=== PATIENT | female | born 1990 | race Caucasian/White ===

== ENCOUNTER 2022-05-08 16:14 | Outpatient (CLI) | payer OTHER, SELFPAY ==
[2022-05-08 21:52] LABS: Chlamydia DNA Amplified* NOT DETECTED (No Detected); GC DNA Amplified* NOT DETECTED (No Detected)
== END 2022-05-08 16:15 | disposition home or self-care (01) ==
PROVIDERS: PCP Family Medicine; Visit Provider Registered Nurse
DX: Z11.3 Encounter for screening for infections with a predominantly sexual mode of transmission (principal)
CPT/HCPCS: 87491; 87591

== ENCOUNTER 2023-01-16 10:08 | Outpatient (CLI) | payer OTHER, SELFPAY | END 2023-01-16 10:09 | disposition home or self-care (01) | LOC: NFLDREF 14:20 | PROVIDERS: PCP Family Medicine; Referring Provider Family Medicine; Visit Provider Family Medicine | DX: Z13.1 Encounter for screening for diabetes mellitus (principal); Z13.6 Encounter for screening for cardiovascular disorders | CPT/HCPCS: 80061; 82947 ==

== ENCOUNTER 2023-07-17 09:46 | Outpatient (CLI) | payer OTHER, SELFPAY | END 2023-07-17 09:47 | disposition home or self-care (01) | LOC: NFLDREF 09:47 | PROVIDERS: PCP Family Medicine; Visit Provider Family Medicine | DX: E78.5 Hyperlipidemia, unspecified (principal); E66.9 Obesity, unspecified | CPT/HCPCS: 80048 ==

== ENCOUNTER 2023-08-02 15:04 | Outpatient (CLI) | payer OTHER, SELFPAY ==
--- OUTSIDE RECORDS SUMMARY | 2023-08-02 15:07 | XMS_ITS | Clinical Summary ---
Author Name Unknown Organization [facility] Address [place], [place] [address] Care Team Providers Care Claims Associate Name Role Phone Jasmina Mejía MD Primary Care Provider + Allergies Active Allergy Reactions Criticality Noted Date Comments Sulfa (Sulfonamide Antibiotics) Angioedema Medium 1103/2020 Medications Medication Sig Dispensed Refills Start Date End Date Status famotidine (PEPCID) 20 mg tablet Take 1 tablet by mouth 2 times daily. 0 05/23/2020 Active valACYclovir (VALTREX) 1 gram tablet 0 08/17/2020 Active durable medical equipment (DME)Indications:Peron eal tendinitis of left lower extremity Airselect, Short Medium. 01ES-M 1 Each 0 11/09/2020 Active Active Problems No known active problems Social History Tobacco Use Types Packs/Day Years Used Date Smoking Tobacco: Never Smokeless Tobacco: Never Sex and Gender Information Value Date Recorded Sex Assigned at Female 11/05/2020 9:48 PM CDT Gender Identity Female 11/05/2020 9:48 PM CDT Sexual Orientation Straight 11/05/2020 9: 48 PM CDT Obstetrics History Last Filed Vital Signs Vital Sign Reading Time Taken Comments Blood Pressure 130/84 11/09/2020 10:36 AM CDT Pulse 101 11/09/2020 10:36 AM CDT Temperature 36.8 ??C (98.2 ??F) 05/23/2020 1:28 PM CS T Respiratory Rate - - Oxygen Saturation 97% 11/09/2020 10:36 AM CDT Inhaled Oxygen Concentration - - Weight 97.5 kg (215 lb) 11/09/2020 10:36 AM CDT Height - - Body Mass Index - - Plan of Treatment Health Maintenance Due Date Last Done Comments COVID-19 vaccine series (#1) 01/17/1989 Tdap 1999 Depression screening for age 12+ 2000 HIV for age 15-65 2003 BMI (ht and wt on same day) for age 18+ 2006 Hepatitis C screening for ag e 18-79 2006 Tetanus booster 2008 Influenza for age 9-49 03/15/2023 Pap test for age 21-65 05/06/2023 0, 05/06/2020 Pneumococcal series for age 6-64 Aged Out No longer eligible b ased on patient's age to complete this topic Care Teams Claims Associate Relationship Specialty Start Date End Date Jasmina Mejía MD [address] [place] [address] PCP - General Family Practice 11/09/20
--- OUTSIDE RECORDS SUMMARY | 2023-08-02 15:07 | XMS_ITS | Clinical Summary ---
Author Name Unknown [facility] Address [address] [place] [address] Care Team Providers Care Alarm Adjuster Name Role Phone Unavailable Primary Care Provider Unavailabl e Source Comments You are receiving this document as you are listed as the primary care provider,follow-up provider, or the patient has been referred to you for consultation.This is in compliance with the Medicare andOhio[facility] Centercaid EHR Incentive Program,which states Providers who transition their patient to another setting of careor provider of care or refers their patient to another provider of care shouldprovide summary care record for each transition of care or referral. [facility] Allergies Active Allergy Reactions Criticality Noted Date Comments Sulfa Antibiotics Unknown 07/05/2021 Medications Medication Sig Dispensed Refills Start Date End Date Status famotidine (PEPCID) 20 MG tablet Take 20 mg by mouth daily. 0 Active Active Problems No known active problems Social History Tobacco Use Types Packs/Day Years Used Date Smoking Tobacco: Never Smokeless Tobacco: Never Sex and Gender Information Value Date Recorded Sex Assigned at Not on file Gender Identity Not on file Sexual Orientation Not on file Last Filed Vital Signs Vital Sign Reading Time Taken Comments Blood Pressure 138/84 03/13/2022 5:55 PM CDT Pulse 86 03/13/2022 5:55 PM CDT Temperature 36.7 ??C (98 ??F) 03/13/2022 5:55 PM CDT Respiratory Rate 16 03/13/2022 5:55 PM CDT Oxygen Saturation 100% 03/13/2022 5:55 PM CDT Inhaled Oxygen Concentration - - Weight - - Height - - Body Mass Index - - Plan of Treatment Health Maintenance Due Date Last Done Comments Cervical Cancer Screening Due 1988 Hep C Screening (Preventive Services) 1988 HepB (1) 1988 COVID-19 Vaccine (#1) 01/17/1989 HIV Screening (Preventive Services) 2004 Adult Preventive Visit 2006 Influenza (#1) 2023 05/02/2020 DTaP/Tdap/Td (2 - Tdap) 02/20/2029 02/20/2019 Zoster/Shingles (1 of 2) 2038 HPV Vaccine Aged Out No longer eligi ble based on patient's age to complete this topic HepA Aged Out No longer eligi ble based on patient's age to complete this topic Hib Aged Out No longer eligi ble based on patient's age to complete this topic IPV (Polio) Aged Out No longer eligi ble based on patient's age to complete this topic MCV4 Aged Out No longer eligi ble based on patient's age to complete this topic Pneumococcal Aged Out No longer eligi ble based on patient's age to complete this topic Anushka Murray Personal/Famil y Self 1990 [facility] [place] [address]
[2023-08-02 19:15] LABS: Chlamydia DNA Amplified* NOT DETECTED (No Detected); GC DNA Amplified* NOT DETECTED (No Detected)
== END 2023-08-02 15:05 | disposition home or self-care (01) ==
LOC: NFLDREF 15:04
PROVIDERS: PCP Family Medicine; Visit Provider Registered Nurse
DX: Z11.3 Encounter for screening for infections with a predominantly sexual mode of transmission (principal)
CPT/HCPCS: 87491; 87591

== ENCOUNTER 2024-01-14 07:30 | Outpatient (CLI) | payer OTHER, SELFPAY ==
--- OUTSIDE RECORDS SUMMARY | 2024-01-16 11:39 | XMS_ITS | Clinical Summary ---
Author Organization [facility] Address [address], [place] [address] Care Team Providers Care Spring Tester Name Role Phone Unavailable Primary Care Provider Unavailabl e Source Comments You are receiving this document as you are listed as the primary care provider,follow-up provider, or the patient has been referred to you for consultation.This is in compliance with the Medicare andDay[facility] Hospitalcaid EHR Incentive Program,which states Providers who transition their patient to another setting of careor provider of care or refers their patient to another provider of care shouldprovide summary care record for each transition of care or referral. [facility] Allergies Active Allergy Reactions Criticality Noted Date Comments Sulfa Antibiotics Unknown 07/05/2021 Medications Medication Sig Dispensed Refills Start Date End Date Status famotidine (PEPCID) 20 MG tablet Take 20 mg by mouth daily. Active Active Problems No known active problems [...] 1988 Hep C Screening (Preventive Services) 1988 HIV Screening (Preventive Services) 2004 Adult Preventive Visit 2006 HepB (1) 2007 COVID-19 Vaccine (2 - 2022-2 4 season) 2023 02/17/2022 Influenza (Season Ended) 2024 05/02/2020 DTaP/Tdap/Td (2 - Tdap) 02/20/2029 02/20/2019 [...] topic Anushka Murray Personal/Famil y Self 1990 [facility] [place] [address]
--- OUTSIDE RECORDS SUMMARY | 2024-01-16 11:39 | XMS_ITS | Clinical Summary ---
Author Organization [facility] Address [place], [place] [address] Care Team Providers Care All Source Collection Manager Name Role Phone Jasmina Mejía MD Primary Care Provider + Allergies Active Allergy Reactions Criticality Noted Date Comments Sulfa (Sulfonamide Antibiotics) Angioedema Medium 1103/2020 Medications Medication Sig Dispensed Refills Start Date End Date Status famotidine (PEPCID) 20 mg tablet Take 1 tablet by mouth 2 times daily. 0 05/23/2020 Active valACYclovir (VALTREX) 1 gram tablet 08/17/2020 Active durable medical equipment (DME)Indications:Peron eal tendinitis of left lower extremity Airselect, Short Medium. 01ES-M 1 Each 11/09/2020 Active Active Problems No known active [...] Health Maintenance Due Date Last Done Comments Tdap 1999 Depression screening for age 12+ 2000 HIV for age 15-65 2003 BMI (ht and wt on same day) for age 18+ 2006 Hepatitis C screening for ag e 18-79 2006 Tetanus booster 2008 COVID-19 vaccine series (2022-24 season) 2023 Pap test for age 21-65 05/06/2023 0, 05/06/2020 Influenza for age 9-49 03/15/2024 Pneumococcal series for age 6-64 Aged Out No longer eligible b ased on patient's age to complete this topic Procedures Procedure Name Priority Date/Time Associated Diagnosis Comments FURNITURE REPRODUCER THIN PREP PAP SCREEN IMAGED Routine 05/06/2020 11:00 AM CDT from Last 3 Months or Most Recently Relevant to Health Maintenance Results * FURNITURE REPRODUCER THIN PREP PAP SCREEN IMAGED (05/06/2020 11:00 AM CDT) Case Report Gynecologic Cytology Report ? Case: [id number] ? Authorizing Provider: ??Jasmina Mejía MD ??Collected: ? 05/06/2020 1100 ? Ordering Location: ? [facility] ?Received: ?05/08/2020 1139 ? First Screen: ?Dwight Multani ? Specimen: ?FURNITURE REPRODUCER ThinPrep Vial Screening, Cervical/Vaginal ? 05/13/2020 9:03 AM CDT [facility] INTERPRETATION/ RESULT NEGATIVE FOR INTRAEPITHELIAL LESION OR MALIGNANCY (NIL) (none) 05/13/2020 9:03 AM CDT [facility] IMEN ADEQUACY Satisfactory for evaluation Endocervical component present 05/13/2020 9:03 AM CDT [facility] HPV REQUEST HPV and PAP 05/13/2020 9:03 AM CDT [facility] Additional Information 05/13/2020 9:03 AM T [facility] Comment: Interpreted at [facility] - [address], [place] [address] Automated Review Successful 05/13/2020 9:03 AM T [facility] Comment:Specimen processed s uccessfully by automated knife finisher device, ThinPrep Imaging System, [employer] ANCILLARY TESTING FURNITURE REPRODUCER HPV Ordered, Please see separate report 05/13/2020 9:03 AM CDT [facility] Note The pap test is a screening technique, not a diagnostic procedure. It is used primarily to screen for squamous cancers and precursor lesions. Published studies have shown that it is subject to both false negative and false positive results. The pap test should not be used as the sole means to diagnose or exclude pre-malignant and malignant lesions. 05/13/2020 9:03 AM CDT [facility] Other (Cervical/Vagina l) 05/06/2020 11:00 AM CDT 05/08/2020 11:39 AM CDT Jasmina Mejía MD PATHOLOGY/CYTOLO GY [facility] [address] [place] [address], [place] from Last 3 Months or Most Recently Relevant to Health Maintenance Care Teams All Source Collection Manager Relationship Specialty Start Date End Date Jasmina Mejía MD [address] [place] [address] PCP - General Family Practice 11/09/20
== END 2024-01-14 07:31 | disposition home or self-care (01) ==
LOC: NFLDREF 01-16 11:38
PROVIDERS: PCP Family Medicine; Referring Provider Family Medicine; Visit Provider Family Medicine
DX: E78.5 Hyperlipidemia, unspecified (principal); R63.4 Abnormal weight loss
CPT/HCPCS: 80048; 80061

== ENCOUNTER 2024-03-25 11:10 | Outpatient (CLI) | payer OTHER, SELFPAY ==
--- OUTSIDE RECORDS SUMMARY | 2024-03-30 00:30 | XMS_ITS | Clinical Summary ---
Author Organization [facility] Address [address], [place] [address] Care Team Providers Care Rewrite Editor Name Role Phone Unavailable Primary Care Provider Unavailabl e Source Comments You are receiving this document as you are listed as the primary care provider,follow-up provider, or the patient has been referred to you for consultation.This is in compliance with the Medicare andUniversity [facility] Health Systemcaid EHR Incentive Program,which states Providers who transition their patient to another setting of careor provider of care or refers their patient to another provider of care shouldprovide summary care record for each transition of care or referral. [facility] Allergies Active Allergy Reactions Criticality Noted Date [...] 1988 Hep C Screening (Preventive Services) 1988 MTM Covered 1988 HIV Screening (Preventive Services) 2004 Adult Preventive Visit 2006 HepB (1) 2007 COVID-19 Vaccine (2 - 2023-2 5 season) 2024 02/17/2022 Influenza (#1) 2024 05/02/2020 DTaP/Tdap/Td (2 - Tdap) 02/20/2029 [...]
--- OUTSIDE RECORDS SUMMARY | 2024-03-30 00:30 | XMS_ITS | Clinical Summary ---
Author Organization [facility] Address [place], [place] [address] Care Team Providers Care Student Life Vice President Name Role Phone Jasmina Mejía MD Primary [...] ag e 18-79 2006 Tetanus booster 2008 Pap test for age 21-65 05/06/2023 0, 05/06/2020 COVID-19 vaccine series ( season) 2024 Influenza for age 9-49 03/15/2024 Pneumococcal series for age 6-64 Aged Out No longer eligible b ased on patient's age to complete this topic Procedures Procedure Name Priority Date/Time Associated Diagnosis Comments SPRAY I PAINTER THIN PREP PAP SCREEN IMAGED Routine 05/06/2020 11:00 AM CDT from Last 3 Months or Most Recently Relevant to Health Maintenance Results * SPRAY I PAINTER THIN PREP PAP SCREEN IMAGED (05/06/2020 11:00 AM CDT) Case Report Gynecologic Cytology Report ? Case: [id number] ? Authorizing Provider: ??Jasmina Mejía MD ??Collected: ? 05/06/2020 1100 ? Ordering Location: ? [facility] ?Received: ?05/08/2020 1139 ? First Screen: ?Dwight Multani ? Specimen: ?SPRAY I PAINTER ThinPrep Vial Screening, Cervical/Vaginal ? 05/13/2020 9:03 AM CDT [facility] INTERPRETATION/ RESULT NEGATIVE FOR INTRAEPITHELIAL LESION OR MALIGNANCY (NIL) (none) 05/13/2020 9:03 AM CDT [facility] IMEN ADEQUACY Satisfactory for evaluation Endocervical component present 05/13/2020 9:03 AM CDT [facility] HPV REQUEST HPV and PAP 05/13/2020 9:03 AM CDT [facility] Additional Information 05/13/2020 9:03 AM T [facility] Comment: Interpreted at [facility] - [address], [place] [address] Automated Review Successful 05/13/2020 9:03 AM T [facility] Comment:Specimen processed s uccessfully by automated marketing analyst device, ThinPrep Imaging System, [employer] ANCILLARY TESTING SPRAY I PAINTER HPV Ordered, Please see separate report 05/13/2020 9:03 AM CDT [facility] Note The pap test is a [...] and malignant lesions. 05/13/2020 9:03 AM CDT [facility] Other (Cervical/Vagina l) 05/06/2020 11:00 AM CDT 05/08/2020 11:39 AM CDT Jasmina Mejía MD PATHOLOGY/CYTOLO GY [facility] [address] [place] [address], [place] from Last 3 Months or Most Recently Relevant to Health Maintenance Care Teams Student Life Vice President Relationship Specialty Start Date End Date Jasmina Mejía MD [address] [place] [address] PCP - General Family Practice 11/09/20
== END 2024-03-25 11:11 | disposition home or self-care (01) ==
LOC: NFLDREF 03-30 00:28
PROVIDERS: PCP Family Medicine; Referring Provider Family Medicine; Visit Provider Family Medicine
DX: N39.0 Urinary tract infection, site not specified (principal); B96.20 Unspecified Escherichia coli [E. coli] as the cause of diseases classified elsewhere
CPT/HCPCS: 87086; 87186

== ENCOUNTER 2024-04-01 08:04 | Outpatient (CLI) | payer OTHER, SELFPAY ==
--- OUTSIDE RECORDS SUMMARY | 2024-04-01 08:07 | XMS_ITS | Clinical Summary ---
Author Organization [employer] [facility] Address [place], [place] [address] Care Team Providers Care Slab Worker Name Role Phone Jasmina Mejía MD Primary [...] Procedure Name Priority Date/Time Associated Diagnosis Comments SALESPERSON CHINA AND GLASSWARE THIN PREP PAP SCREEN IMAGED Routine 05/06/2020 11:00 AM CDT from Last 3 Months or Most Recently Relevant to Health Maintenance Results * SALESPERSON CHINA AND GLASSWARE THIN PREP PAP SCREEN IMAGED (05/06/2020 11:00 AM CDT) Case Report Gynecologic Cytology Report ? Case: [id number] ? Authorizing Provider: ??Jasmina Mejía MD ??Collected: ? 05/06/2020 1100 ? Ordering Location: ? [facility] ?Received: ?05/08/2020 1139 ? First Screen: ?Dwight Multani ? Specimen: ?SALESPERSON CH[place] AND GLASSWARE ThinPrep Vial Screening, Cervical/Vaginal ? 05/13/2020 9:03 AM CDT [facility] INTERPRETATION/ RESULT NEGATIVE FOR INTRAEPITHELIAL LESION OR MALIGNANCY (NIL) (none) 05/13/2020 9:03 AM CDT [facility] IMEN ADEQUACY Satisfactory for evaluation Endocervical component present 05/13/2020 9:03 AM CDT [facility] HPV REQUEST HPV and PAP 05/13/2020 9:03 AM CDT [facility] Additional Information 05/13/2020 9:03 AM T [facility] Comment: Interpreted at [facility] - [address], [place] [address] Automated Review Successful 05/13/2020 9:03 AM T [facility] Comment:Specimen processed s uccessfully by automated hospitalist medical director device, ThinPrep Imaging System, [employer] ANCILLARY TESTING SALESPERSON [place] AND GLASSWARE HPV Ordered, Please see separate report 05/13/2020 9:03 AM CDT [facility] Note The pap test is a [...] and malignant lesions. 05/13/2020 9:03 AM CDT [facility] Other (Cervical/Vagina l) 05/06/2020 11:00 AM CDT 05/08/2020 11:39 AM CDT Jasmina Mejía MD PATHOLOGY/CYTOLO GY [facility] [address] [place] [address], [place] from Last 3 Months or Most Recently Relevant to Health Maintenance Care Teams Slab Worker Relationship Specialty Start Date End Date Jasmina Mejía MD [address] [place] [address] PCP - General Family Practice 11/09/20
--- OUTSIDE RECORDS SUMMARY | 2024-04-01 08:07 | XMS_ITS | Clinical Summary ---
Author Organization [facility] Address [address], [place] [address] Care Team Providers Care Letter Of Credit Clerk Name Role Phone Unavailable Primary Care Provider Unavailabl e Source Comments You are receiving this document as you are listed as the primary care provider,follow-up provider, or the patient has been referred to you for consultation.This is in compliance with the Medicare andMer[facility] Hospitalcaid EHR Incentive Program,which states Providers who transition their patient to another setting of careor provider of care or refers their patient to another provider of care shouldprovide summary care record for each transition of care or referral. [facility] Allergies Active Allergy Reactions Criticality Noted [...]
--- NOTE | 2024-04-01 08:30 | CRLHL7_ITS ---
For Patients: As a result of the Century Cures Act, medical imaging exams and procedure reports are released immediately into your electronic medical record. You may view this report before your referring provider. If you have questions, please contact your health care provider. Indication: RIGHT FLANK PAIN; UTI; LOOKING FOR OBSTRUCTING URETRAL STONE Technique: Noncontrast CT abdomen and pelvis Please note that all CT scans at this facility use dose modulation, iterative reconstruction, and/or weight-based dosing when appropriate to reduce radiation dose to as low as reasonably achievable. Comparison: 07/05/2021 Findings: Normal appendix. No bowel obstruction, free air, free fluid or adenopathy. Bladder incompletely distended. No bladder stones. IUD in the uterus. Normal ovaries. Lung bases are clear. Noncontrast enhanced liver appears normal. Spleen is within normal limits. The gallbladder is distended. No biliary obstruction. No calcified gallstones. The pancreas is normal. Normal adrenal glands. Degenerative disc disease L5-S1 with posterior discogenic ridging. Normal kidneys. No renal stones. No perinephric stranding or hydronephrosis. Normal ureters. Incidental right pelvic phlebolith. Impression: No renal, ureteral or bladder stones. No inflammatory change regarding the kidneys. The gallbladder is distended without calcified gallstone. Ultrasound of the right upper quadrant recommended for further evaluation. No bowel obstruction. Normal appendix. Please note that all CT scans at this facility use dose modulation, iterative reconstruction, and/or weight-based dosing when appropriate to reduce radiation dose to as low as reasonably achievable. Dictated by Quang Camacho MD @ 04/01/2024 1:06:42 PM (Electronically Signed)
== END 2024-04-01 08:05 | disposition home or self-care (01) ==
LOC: CT 08:04
PROVIDERS: PCP Family Medicine; Visit Provider Family Medicine
DX: R10.11 Right upper quadrant pain (principal); K82.9 Disease of gallbladder, unspecified; N39.0 Urinary tract infection, site not specified
CPT/HCPCS: 74176

== ENCOUNTER 2024-04-02 15:59 | Outpatient (CLI) | payer OTHER, SELFPAY ==
--- OUTSIDE RECORDS SUMMARY | 2024-04-02 16:01 | XMS_ITS | Clinical Summary ---
Author Organization [facility] Address [address], [place] [address] Care Team Providers Care Refiner Operator Name Role Phone Unavailable Primary Care Provider Unavailabl e Source Comments You are receiving this document as you are listed as the primary care provider,follow-up provider, or the patient has been referred to you for consultation.This is in compliance with the Medicare andC[facility] Hospitalcaid EHR Incentive Program,which states Providers who transition their patient to another setting of careor provider of care or refers their patient to another provider of care shouldprovide summary care record for each transition of care or referral. [facility] Allergies Active Allergy Reactions Criticality Noted [...]
--- OUTSIDE RECORDS SUMMARY | 2024-04-02 16:02 | XMS_ITS | Clinical Summary ---
Author Organization [employer] [facility] Address [place], [place] [address] Care Team Providers Care Workflow Developer Name Role Phone Jasmina Mejía MD Primary [...] Procedure Name Priority Date/Time Associated Diagnosis Comments TESTING AND REGULATING CHIEF THIN PREP PAP SCREEN IMAGED Routine 05/06/2020 11:00 AM CDT from Last 3 Months or Most Recently Relevant to Health Maintenance Results * TESTING AND REGULATING CHIEF THIN PREP PAP SCREEN IMAGED (05/06/2020 11:00 AM CDT) Case Report Gynecologic Cytology Report ? Case: [id number] ? Authorizing Provider: ??Jasmina Mejía MD ??Collected: ? 05/06/2020 1100 ? Ordering Location: ? [facility] ?Received: ?05/08/2020 1139 ? First Screen: ?Dwight Multani ? Specimen: ?TESTING AND REGULATING CHIEF ThinPrep Vial Screening, Cervical/Vaginal ? 05/13/2020 9:03 AM CDT [facility] INTERPRETATION/ RESULT NEGATIVE FOR INTRAEPITHELIAL LESION OR MALIGNANCY (NIL) (none) 05/13/2020 9:03 AM CDT [facility] IMEN ADEQUACY Satisfactory for evaluation Endocervical component present 05/13/2020 9:03 AM CDT [facility] HPV REQUEST HPV and PAP 05/13/2020 9:03 AM CDT [facility] Additional Information 05/13/2020 9:03 AM T [facility] Comment: Interpreted at [facility] - [address], [place] [address] Automated Review Successful 05/13/2020 9:03 AM T [facility] Comment:Specimen processed s uccessfully by automated applications programmer device, ThinPrep Imaging System, [employer] ANCILLARY TESTING TESTING AND REGULATING CHIEF HPV Ordered, Please see separate report 05/13/2020 9:03 AM CDT [facility] Note The pap test [...] and malignant lesions. 05/13/2020 9:03 AM CDT [facility] Other (Cervical/Vagina l) 05/06/2020 11:00 AM CDT 05/08/2020 11:39 AM CDT Jasmina Mejía MD PATHOLOGY/CYTOLO GY [facility] [address] [place] [address], [place] from Last 3 Months or Most Recently Relevant to Health Maintenance Care Teams Workflow Developer Relationship Specialty Start Date End Date Jasmina Mejía MD [address] [place] [address] PCP - General Family Practice 11/09/20
== END 2024-04-02 16:00 | disposition home or self-care (01) ==
PROVIDERS: PCP Family Medicine; Visit Provider Family Medicine
DX: R10.11 Right upper quadrant pain (principal)
CPT/HCPCS: 76705; 80053; 83690

== ENCOUNTER 2024-08-18 08:44 | Day surgery (SDC) | payer OTHER, SELFPAY ==
[2024-08-18] VITALS (11 sets, daily range): BP systolic 109–137; BP diastolic 68–91; PULSE 67–98; RESP 13–18; TEMP 36.2–36.9; O2SAT 97–100; BMI 26.9
--- OUTSIDE RECORDS SUMMARY | 2024-08-18 08:48 | XMS_ITS | Clinical Summary ---
Author Organization [facility] Address [address], [place] [address] Care Team Providers Care Commodities Trader Name Role Phone Unavailable Primary Care Provider Unavailabl e Source Comments You are receiving this document as you are listed as the primary care provider,follow-up provider, or the patient has been referred to you for consultation.This is in compliance with the Medicare andUk Healthcarecaid EHR Incentive Program,which states Providers who transition their patient to another setting of careor provider of care or refers their patient to another provider of care shouldprovide summary care record for each transition of care or referral. [facility] Allergies Active Allergy Reactions Criticality Noted Date [...] 86 03/13/2022 5:55 PM CDT Temperature 36.7 C (98 F) 03/13/2022 5:55 PM CDT Respiratory Rate 16 [...] Visit 2006 HepB (1) 2007 COVID-19 Vaccine (2023-2 5 season) 2024 02/17/2022 Influenza (#1) 2024 [...] topic Anushka Murray Personal/Famil y Self 1990 [facility] [place] [address]
--- OUTSIDE RECORDS SUMMARY | 2024-08-18 08:48 | XMS_ITS | Clinical Summary ---
Author Organization [employer] [facility] Address [place], [place] [address] Care Team Providers Care Licensed Sales Assistant Name Role Phone Jasmina Mejía MD Primary Care Provider + Allergies Active Allergy Reactions Criticality Noted Date Comments Sulfa (Sulfonamide Antibiotics) Angioedema Medium 1103/2020 Medications famotidine (PEPCID) 20 mg tablet Take 1 tablet by mouth 2 times daily. 0 05/23/2020 Active valACYclovir (VALTREX) 1 gram tablet 08/17/2020 Active durable medical equipment (DME)Indications :Peroneal tendinitis of left lower extremity Airselect, Short Medium. 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 Gender Identity Female 11/05/2020 9:48 PM CDT Sexual Orientation Straight 11/05/2020 9: 48 PM CDT Obstetrics History Last Filed Vital Signs Vital Sign Reading Time Taken Comments Blood Pressure 130/84 11/09/2020 10:36 AM CDT Pulse 101 11/09/2020 10:36 AM CDT Temperature 36.8 C (98.2 F) 05/23/2020 1:28 PM CRIB ATTENDANT Respiratory Rate - - Oxygen Saturation 97% [...] 21-65 05/06/2023 0, 05/06/2020 COVID-19 vaccine series (2023- season) 2024 Influenza for age 9-49 03/15/2024 Pneumococcal series for age 6-49 Aged Out No longer eligible b ased on patient's age to complete this topic Procedures Procedure Name Priority Date/Time Associated Diagnosis Comments CLINICAL ACCOUNT MANAGER THIN PREP PAP SCREEN IMAGED Routine 05/06/2020 11:00 AM CDT from Last 3 Months or Most Recently Relevant to Health Maintenance Results * CLINICAL ACCOUNT MANAGER THIN PREP PAP SCREEN IMAGED (05/06/2020 11:00 AM CDT) Case Report Gynecologic Cytology Report Case: [id number] Authorizing Provider: Jasmina Mejía MD Collected: 05/06/2020 1100 Ordering Location: [facility] Received: 05/08/2020 1139 First Screen: Dwight Multani Specimen: CLINICAL ACCOUNT MANAGER ThinPrep Vial Screening, Cervical/Vaginal 05/13/2020 9:03 AM CDT [facility] ENTRAL LABORATORY INTERPRETATION/ RESULT NEGATIVE FOR INTRAEPITHELIAL LESION OR MALIGNANCY (NIL) (none) 05/13/2020 9:03 AM CDT [facility] IMEN ADEQUACY Satisfactory for evaluation Endocervical component present 05/13/2020 9:03 AM CDT [facility] HPV REQUEST HPV and PAP 05/13/2020 9:03 AM CDT [facility] Additional Information 05/13/2020 9:03 AM CDT [facility] Comment: Interpreted at [facility] - [address] [place] [address], [place] [address] Automated Review Successful 05/13/2020 9:03 AM CDT [facility] Comment:Specimen processed s uccessfully by automated deaf and hard of hearing teacher device, ThinPrep Imaging System, [employer] ANCILLARY TESTING CLINICAL ACCOUNT MANAGER HPV Ordered, Please see separate report 05/13/2020 9:03 AM CDT [facility] Note The pap test is a [...] and malignant lesions. 05/13/2020 9:03 AM CDT [facility] Other (Cervical/Vagina l) 05/06/2020 11:00 AM CDT 05/08/2020 11:39 AM CDT Jasmina Mejía MD PATHOLOGY/CYTOLOGY Final Result [facility] [address] [facility] [employer] [address] [place] [address], from Last 3 Months or Most Recently Relevant to Health Maintenance Insurance [employer] [place] [id number] Care Teams Licensed Sales Assistant Relationship Specialty Start Date End Date Jasmina Mejía MD [address] [place] [id number] PCP - General Family Practice 11/09/20
[2024-08-18 09:12] LABS: Ur HCG Qualitative* Negative (Negative)
--- NOTE | 2024-08-18 09:24 | W.PM.H&PU ---
History & Physical Update History & Physical Update H&P Reviewed and patient assessed: No changes noted H&P Updates: Ms. Murray is seen in pre-op prior to planned ParaGard IUD removal, Mirena IUD re insertion and laparoscopic bilateral salpingectomy. No interval change to her health history or questions today. We again reviewed the risks, benefits and alternatives to the planned procedure. She affirmed her desire to proceed with Mirena IUD insertion, where this was added to her consent. Written consent was re-signed. Post-procedure restrictions and expectations reviewed. Pre-op labs reviewed and are within normal limits. No perioperative antibiotics indicated.
--- NOTE | 2024-08-18 09:25 | W.PM.GYNPROC ---
Procedure Note Time Seen by Provider: 10:47 Date of procedure: 08/18/24 Will [facility] bill your pro fee for this procedure?: Yes Pre-op diagnosis: Contraception management Desire for menstrual suppression Undesired fertility Procedure: Paraguard IUD removal Mirena IUD insertion Laparoscopic bilateral salpingectomy Anesthesia: GETA Complications: None Surgeon: Soo Romero MD Estimated blood loss (mL): 10 IV fluids (mL): 350 Urine Output (mL): 50 Pathology: specimen obtained, sent to pathology Condition: stable Disposition: same day Findings: Unremarkable upper abdominal survey and appendix Normal uterine and bilateral ovaries The fallopian tubes were tortuous and adhesed to the bilateral ovaries Left ovarian fossa with speckles of suspected superficial endometriosis Procedure Description: Patient was taken to the operating room with IV running. She was positioned in dorsal lithotomy position with her legs fully supported in Yellowfin stirrups. General anesthesia was administered. She was prepped and draped in the usual sterile fashion. A surgical time out was held to confirm patient and procedure. Nassar catheter was inserted. Speculum inserted, vaginal mucosa was pink and well rugated. Cervix easily visualized, IUD strings seen. A ring forceps was utilized to grasp strings, where IUD was removed intact with gentle traction. Tenaculum was applied to the cervix. Uterus sounded to 8.5 cm. Playspacelka uterine manipulator was introduced and secured to anterior cervix. Tenaculum removed. Attention was turned to patient's abdomen. Infraumbilical area was infiltrated with a small amount of Marcaine. A 5 mm infraumbilical incision was made with a scalpel and carried down to the underlying layer of fascia with the hemostat. 5 mm camera was placed within the 5 mm Fios Kii trocar, and advanced under direct visualization through the anterior abdominal wall into the peritoneal cavity, while tenting up the anterior abdominal wall. The trocar was removed. The balloon was inflated, holding the port in place. Pneumoperitoneum was achieved, where careful attention was paid below site of entry. Small defect noted in the pericolonic fat noted below site of entry, no active bleeding or injury to the colon itself. Upper abdominal survey was completed, revealing normal anatomy. Patient was put into Trendelenburg, pelvic survey as above. Two additional port sites were created, first in the right lower quadrant 2cm superior and medial to the ASIS. 5mm skin incision was made and trocar advanced under direct visualization with rotation and gentle pressure. Careful attention was paid to avoid the inferior epigastric vessels, superficial skin vasculature and the bowel on entry. Obturator removed, balloon inflated. A second 5mm port was placed in the same location and in the same fashion on the left. Attention was first turned to the left fallopian tube, which was sequentially ligated and transected from the mesosalpinx using the Ligasure cautery device. Care was made to ensure the underlying normal ovarian tissue and ovarian vessels were well away from site of planned transection. We proceeded from the fimbriated end, lateral to medial, and the tube was amputated at the right uterine cornua. Specimen was removed intact. The same procedure was repeated on the patient's right side, where adhesions between the tubal fimbriae and ovary/ovarian vessels were first taken down. Coagulation and transection proceed along the mesosalpinx, where right fallopian tube was also amputated at the cornua and removed from the patient's abdomen. Both fallopian tubes were sent for pathologic evaluation. Survey of the pelvis revealed excellent hemostasis. We reinspected site of pericolonic fat defect, again noted to be hemostatic. I then reinserted a speculum and removed the Hulka uterine manipulator. Tenaculum was applied again to the cervix, where sounding length was confirmed at 8.5 cm. The Mirena IUD is loaded into the insertion tube, inserted to the sounded depth, and deployed. Insertion tube was removed. Strings are trimmed to 3 cm. Tenaculum removed, hemostasis was noted. Nassar catheter removed. Brief survey of the pelvis laparoscopically confirmed no perforation and excellent hemostasis. Low pressure test conducted and ensured excellent hemostasis throughout. Procedure was deemed complete. The balloons of all port sites were deflated, and all ports were removed after pneumoperitoneum was released. Local anesthetic (Marcaine) was infiltrated in the subcutaneous tissue at each port site. The skin of each port site was closed in a subcuticular fashion with 3-0 Monocryl. Surgical glue was applied above this. Patient tolerated procedure well and was taken to recovery area in stable condition. EBL 10mL, UOP 50 mL, IVF 350 mL. Confirmed specimens sent to pathology.
[2024-08-18] MEDS: 0.9 % SODIUM CHLORIDE 500 ML 500 ML 100 ML IV (09:30)
[2024-08-18] MEDS: SODIUM CHLORIDE 0.9 % (FLUSH) 10 ML SYRINGE IVF (09:30)
[2024-08-18 09:50] LABS: Hemoglobin* 13.2 gm/dL (12.0-16.0)
[2024-08-18] MEDS: BUPIVACAINE 0.25 %/EPI 1:200K 30 ml INJECTION (10:07)
--- NOTE | 2024-08-18 10:48 | P.ANES_ITS ---
Anesthesia Charges Start Date/Time Anesthesia Start Date: 08/18/24 Anesthesia Start Time: 09:39 Stop Date/Time Anesthesia Stop Date: 08/18/24 Anesthesia Stop Time: 10:51 Coding CPT Codes CPT Codes: ANESTH SURG LOWER ABDOMEN - 28503 ([id number]) P1 - NORMAL HEALTHY PATIENT, QK - CAN CAPPER 2-4 CNCRNT ANES PROC, QX - SERVICE VEHICLE OPERATOR SVJoan W/ MED DIRECTION
--- NOTE | 2024-08-18 10:48 | W.ANESCHARGE ---
Anesthesia Charges Start Date/Time Anesthesia Start Date: 08/18/24 Anesthesia Start Time: 09:39 Stop Date/Time Anesthesia Stop Date: 08/18/24 Anesthesia Stop Time: 10:51 Coding CPT Codes CPT Codes: ANESTH SURG LOWER ABDOMEN - 51681 ([id number]) P1 - NORMAL HEALTHY PATIENT, QK - REGISTRAR MUSEUM 2-4 CNCRNT ANES PROC, QX - SMOKING TOBACCO PACKING MACHINE HAND SVJoan W/ MED DIRECTION
--- NOTE | 2024-08-18 11:05 | P.ANES_ITS ---
Anesthesia Charges Start Date/Time Anesthesia Start Date: 08/18/24 Anesthesia Start Time: 09:39 Stop Date/Time Anesthesia Stop Date: 08/18/24 Anesthesia Stop Time: 10:51 Coding CPT Codes CPT Codes: ANESTH SURG LOWER ABDOMEN - 21616 ([id number]) P1 - NORMAL HEALTHY PATIENT, QK - CATALYST OPERATOR GASOLINE 2-4 CNCRNT ANES PROC, QX - FISHER POUND NET OR TRAP SVJoan W/ MED DIRECTION
--- NOTE | 2024-08-18 11:05 | W.ANESCHARGE ---
Anesthesia Charges Start Date/Time Anesthesia Start Date: 08/18/24 Anesthesia Start Time: 09:39 Stop Date/Time Anesthesia Stop Date: 08/18/24 Anesthesia Stop Time: 10:51 Coding CPT Codes CPT Codes: ANESTH SURG LOWER ABDOMEN - 39223 ([id number]) P1 - NORMAL HEALTHY PATIENT, QK - COURSEWARE DEVELOPER 2-4 CNCRNT ANES PROC, QX - LUBE ATTENDANT SVJoan W/ MED DIRECTION
== END 2024-08-18 12:15 | disposition home or self-care (01) ==
LOC: OR 08:46
PROVIDERS: PCP Family Medicine; Visit Provider Obstetrics & Gynecology
PROC: (CPT 58661; principal; 2024-08-18 10:30)
DX: Z30.2 Encounter for sterilization (principal); Z30.433 Encounter for removal and reinsertion of intrauterine contraceptive device; N94.89 Other specified conditions associated with female genital organs and menstrual cycle
CPT/HCPCS: 58661; 58301; 58300; 00840; 36415; 81025; 85018; 86850; 86900; 86901; 88302; J1100; J1630; J1885; J2250; J2405; J2704; J3010; J7030; J7298

== ENCOUNTER 2024-12-08 11:36 | Outpatient (CLI) | payer OTHER, SELFPAY ==
[2024-12-08 15:28] LABS: Bacterial Vaginosis* Negative (Negative); Candida glab/krus NOT DETECTED (No Detected); Candida species DETECTED (No Detected); Trichomonas vaginalis NOT DETECTED (No Detected)
[2024-12-10 04:33] LABS: HPV Source Cervix; HPV, High Risk by TMA Not Detected
[2024-12-21 16:32] LABS: Pap Test Reviewed by Path Done
== END 2024-12-08 11:37 | disposition home or self-care (01) ==
PROVIDERS: PCP Family Medicine; Visit Provider Registered Nurse
DX: N89.8 Other specified noninflammatory disorders of vagina (principal); Z12.4 Encounter for screening for malignant neoplasm of cervix; Z11.51 Encounter for screening for human papillomavirus (HPV)
CPT/HCPCS: 81513; 87481; 87624; 87625; 87661; 88141; 88142

== ENCOUNTER 2025-02-04 07:48 | Outpatient (CLI) | payer OTHER, SELFPAY | END 2025-02-04 07:49 | disposition home or self-care (01) | LOC: NFLDREF 02-05 07:56 | PROVIDERS: PCP Family Medicine; Referring Provider Family Medicine; Visit Provider Family Medicine | DX: E78.5 Hyperlipidemia, unspecified (principal); R73.03 Prediabetes | CPT/HCPCS: 80053; 80061 ==

== ENCOUNTER 2025-02-05 08:24 | Outpatient (CLI) | payer OTHER, SELFPAY | END 2025-02-05 08:25 | disposition home or self-care (01) | LOC: NFLDREF 08:26 | PROVIDERS: PCP Family Medicine; Visit Provider Obstetrics & Gynecology | DX: N39.0 Urinary tract infection, site not specified (principal); B95.7 Other staphylococcus as the cause of diseases classified elsewhere | CPT/HCPCS: 87086; 87186 ==

== ENCOUNTER 2025-02-19 09:19 | Outpatient (CLI) | payer OTHER, SELFPAY | END 2025-02-19 09:20 | disposition home or self-care (01) | LOC: NFLDREF 09:20 | PROVIDERS: PCP Family Medicine; Visit Provider Obstetrics & Gynecology | DX: R30.0 Dysuria (principal); N39.0 Urinary tract infection, site not specified | CPT/HCPCS: 87086 ==

== ENCOUNTER 2025-02-23 07:38 | Emergency (ER) | payer OTHER, SELFPAY ==
--- OUTSIDE RECORDS SUMMARY | 2025-02-23 07:40 | XMS_ITS | Clinical Summary ---
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 Gender Identity Female 11/05/2020 9:48 PM CDT Sexual Orientation Straight 11/05/2020 9: 48 PM CDT Obstetrics History Last Filed Vital Signs Vital Sign Reading Time Taken Comments Blood Pressure 130/84 11/09/2020 10:36 AM CDT Pulse 101 11/09/2020 10:36 AM CDT Temperature 36.8 C (98.2 F) 05/23/2020 1:28 PM BLUNGER LOADER Respiratory Rate - - Oxygen Saturation 97% 11/09/2020 10:36 AM CDT Inhaled Oxygen Concentration - - Weight 97.5 kg (215 lb) 11/09/2020 10:36 AM CDT Height - - Body Mass Index - - Plan of Treatment Health Maintenance Due Date Last Done Comments Tetanus booster 1999 Depression screening for age 12+ 2000 HIV for age 15-65 2003 BMI (ht and wt on same day) for age 18+ 2006 Hepatitis C screening for ag e 18-79 2006 Hepatitis B series for 19+ ( 1 of 3 - 19+ 3-dose series) 2007 Pap test for age 21-65 05/06/2023 0, 05/06/2020 COVID-19 vaccine series ( - 2023- season) 2024 Influenza Vaccine (#1) 2025 Pneumococcal series for age 6-49 Aged Out No longer eligible b ased on patient's age to complete this topic Procedures Procedure Name Priority Date/Time Associated Diagnosis Comments FIRE ALARM TECHNICIAN THIN PREP PAP SCREEN IMAGED Routine 05/06/2020 11:00 AM CDT from Last 3 Months or Most Recently Relevant to Health Maintenance Results * FIRE ALARM TECHNICIAN THIN PREP PAP SCREEN IMAGED (05/06/2020 11:00 AM CDT) Case Report Gynecologic Cytology Report Case: [id number] Authorizing Provider: Jasmina Mejía MD Collected: 05/06/2020 1100 Ordering Location: [facility] Received: 05/08/2020 1139 First Screen: Dwight Multani Specimen: FIRE ALARM TECHNICIAN ThinPrep Vial Screening, Cervical/Vaginal 05/13/2020 9:03 AM CDT [facility] ENTRAL LABORATORY INTERPRETATION/ RESULT NEGATIVE FOR INTRAEPITHELIAL LESION OR MALIGNANCY (NIL) (none) 05/13/2020 9:03 AM CDT [facility]-C ENTRAL LABORATORY at 0903 CDT SPECIMEN ADEQUACY Satisfactory for evaluation Endocervical component present 05/13/2020 9:03 AM CDT [facility] ENTRAL LABORATORY HPV REQUEST HPV and PAP 05/13/2020 9:03 AM CDT [facility] ENTRAL LAB[facility]ATORY Additional Information 05/13/2020 9:03 AM CDT [facility] ENTRAL LABORATORY Comment: Interpreted at [facility] - [address] [place] [address], [place] [address] Automated Review Successful 05/13/2020 9:03 AM CDT [facility] Comment:Specimen processed s uccessfully by automated stitch separator device, Bee ShieldPrep Imaging System, [employer] ANCILLARY TESTING FIRE ALARM TECHNICIAN HPV Ordered, Please see separate report 05/13/2020 9:03 AM CDT [facility] Note The pap test is a [...] and malignant lesions. 05/13/2020 9:03 AM CDT [facility] Other (Cervical/Vagina l) 05/06/2020 11:00 AM CDT 05/08/2020 11:39 AM CDT us Jasmina Mejía MD PATHOLOGY/CYTOLOGY Final Result [facility] [address] [place] [address], from Last 3 Months or Most Recently Relevant to Health Maintenance Insurance [employer] [facility] [place] [id number] Care Teams Shipping Clerk Packing Relationship Specialty Start Date End Date Jasmina Mejía MD [address] [place] [address] PCP - General Family Practice 11/09/20
--- OUTSIDE RECORDS SUMMARY | 2025-02-23 07:40 | XMS_ITS | Clinical Summary ---
Author Organization [facility] Address [address], [place] [address] Care Team Providers Care Mail Sorter Name Role Phone Unavailable Primary Care Provider Unavailabl e Source Comments You are receiving this document as you are listed as the primary care provider,follow-up provider, or the patient has been referred to you for consultation.This is in compliance with the Medicare and[facility] [place] [facility] EHR Incentive Program,which states Providers who transition their patient to another setting of careor provider of care or refers their patient to another provider of care shouldprovide summary care record for each transition of care or referral. [facility] Allergies Active Allergy Reactions Criticality Noted Date Comments Sulfa Antibiotics Unknown 07/05/2021 Medications famotidine (PEPCID) 20 MG tablet Take 20 mg by mouth daily. Active Active Problems No known active problems Social History Tobacco Use Types Packs/Day Years Used Date Smoking Tobacco: Never Smokeless Tobacco: Never Comments No Sex and Gender Information Value Date Recorded Sex Assigned at Not on file Legal Sex Female 8:29 AM JACQUARD FIXER Gender Identity Not on file Sexual Orientation [...] Services) 2004 Adult Preventive Visit 2006 HepB Vaccine (1) 2007 COVID-19 Vaccine (2 - 2023-2 5 season) 2024 02/17/2022 Influenza Vaccine (#1) 2025 05/02/2020 DTaP/Tdap/Td Vaccine (2 - Tdap) 02/20/2029 9 Zoster/Shingles Vaccine (1 of 2) 2038 HPV Vaccine Aged Out No longer eligi ble based on patient's age to complete this topic HepA Vaccine Aged Out No longer eligi ble based on patient's age to complete this topic Hib Vaccine Aged Out No longer eligi ble based on patient's age to complete this topic IPV (Polio) Vaccine Aged Out No longe r eligible based on patient's age to complete this topic MCV4 Vaccine Aged Out No longer eligi ble based on patient's age to complete this topic Meningococcal B Vaccine Aged Out No l onger eligible based on patient's age to complete this topic Pneumococcal Vaccine Aged Out No long er eligible based on patient's age to complete this topic Insurance SELF INSURED SELF INSURED
[2025-02-23 07:42] VITALS: BP 125/84; PULSE 97; RESP 16; TEMP 36.2; O2SAT 97; BMI 29.2
--- NOTE | 2025-02-23 08:12 | CRLHL7_ITS ---
For Patients: As a result of the Century Cures Act, medical imaging exams and procedure reports are released immediately into your electronic medical record. You may view this report before your referring provider. If you have questions, please contact your health care provider. INDICATION: Right flank pain. TECHNIQUE: CT abdomen and pelvis without contrast. COMPARISON: 04/01/2024. FINDINGS: Visualized lung bases are clear. The liver is unremarkable. The gallbladder is distended. No CT evidence acute cholecystitis. No biliary ductal dilatation. Spleen is unremarkable. Pancreas is unremarkable. Adrenal glands are normal. Prominent right renal pelvis is seen without hydronephrosis. No stone. No perinephric stranding. Urinary bladder is partially distended with mild thickening, likely due to underdistention. There is stool throughout the colon which appears nondilated. High density material is noted within a nondilated appendix without CT evidence of acute appendicitis. The terminal ileum is unremarkable. The remainder of the small bowel is unremarkable without evidence of a bowel obstruction. The stomach is partially distended with mild thickening, likely due to underdistention. No free air. No ascites. No lymphadenopathy is seen. Asymmetric prominent right adnexa, likely reflecting a cyst, with possible surrounding stranding. This is not well evaluated on CT. Aorta is nonaneurysmal. Bone windows demonstrate no suspicious lytic or sclerotic lesion. Prominent posterior osteophyte complex noted at L5-S1. IMPRESSION: 1. Asymmetric prominent right adnexa. A follow-up pelvic ultrasound is recommended for further evaluation in this patient with right flank pain. Please note that all CT scans at this facility use dose modulation, iterative reconstruction, and/or weight-based dosing when appropriate to reduce radiation dose to as low as reasonably achievable. Dictated by Paras Chambers MD @ 02/23/2025 9:03:17 AM (Electronically Signed)
--- NOTE | 2025-02-23 08:13 | ED.GENADULT ---
HPI - General Adult General Chief complaint: Flank Pain Stated complaint: Right side flank pain Time Seen by Provider: 02/23/25 07:54 History of Present Illness HPI narrative: This 34-year-old female comes in reporting right flank pain that began yesterday. She rates that at 4/10 in severity and states that it is a rather constant pain and does not seem to be relieved or aggravated with certain position or movement. She is currently taking Keflex for urinary tract infection. She arrives here with normal vital signs. She does not report any nausea or vomiting. She no longer has dysuria symptoms. A urine culture recently showed evidence of E coli infection that was sensitive to all treatments except fluoroquinolones. Related Data Home Medications ?Medication ?Instructions ?Recorded ?Confirmed multivitamin 1 tab PO QDAY 07/17/23 02/22/25 famotidine 20 mg tablet 20 mg PO QDAY PRN 07/03/24 02/22/25 Previous Rx's ?Medication ?Instructions ?Recorded ondansetron 4 mg disintegrating 4 mg PO Q8H PRN nausea and 04/02/24 tablet vomiting #20 tabs omeprazole 20 mg capsule,delayed 20 mg PO QDAY #90 caps 02/09/25 release phentermine 15 mg-topiramate ER 92 1 cap PO QDAY #30 caps 02/09/25 mg capsule,[id number] multphas (Qsymia) valacyclovir 1 gram tablet 2,000 mg (2 x 1 gram) PO Q12H PRN 02/09/25 cold sores #14 tabs cephalexin 500 mg capsule 500 mg PO QID 7 days #28 caps 02/19/25 ketorolac 10 mg tablet 10 mg PO TID 5 days #15 tabs 02/23/25 Allergies Allergy/AdvReac Type Severity Reaction Status Date / Time Sulfa (Sulfonamide Allergy Intermediate Swelling Verified 02/22/25 10:47 Antibiotics) of the Eye nickel Allergy Mild RASH Verified 02/22/25 10:47 Review of Systems Status of ROS: Reports: 10 or more systems reviewed and unremarkable except as noted in History and below Narrative: Constitutional: No fevers, no weight gain or loss. Eyes: No discharge. No vision changes. HENT: No congestion, no sore throat, no ear pain. Cardiovascular: No chest pain, no palpitations. Respiratory: No shortness of breath, no wheezes, no cough. Gastrointestinal: No vomiting, no diarrhea. Right flank pain radiating into her right abdomen. Genitourinary: No dysuria, no hematuria. Musculoskeletal: Normal range of motion. Skin: No rashes, no pruritis. Neurological: No dizziness, weakness, sensory change, speech change. Endo/Heme/Allergies: No bruising or bleeding. No polydipsia. Pysch: no suicidality, no anxiety, no insomnia. All other systems reviewed and are negative. PFSH [facility] Medical History (Updated 02/23/25 @ 11:51 by Robbie Lowe MD) Female infertility ?N97.9 - Female infertility, unspecified (ICD-10) Unwanted fertility ?Z30.09 - Encounter for other general counseling and advice on contraception (ICD-10) Closed fracture of distal end of left radius with routine healing ?S52.502D - Unspecified fracture of the lower end of left radius, subsequent encounter for closed fracture with routine healing (ICD-10) History of gastroesophageal reflux (GERD) ?Z87.19 - Personal history of other diseases of the digestive system (ICD-10) RLQ abdominal pain ?R10.31 - Right lower quadrant pain (ICD-10) Ovarian cyst ?N83.209 - Unspecified ovarian cyst, unspecified side (ICD-10) Surgical History (Updated 02/09/25 @ 07:43 by Elbert Cadena MD) History of bilateral salpingectomy ?Z90.79 - Acquired absence of other genital organ(s) (ICD-10) Hx of LASIK ?Z98.890 - Other specified postprocedural states (ICD-10) H/O left wrist surgery ?Z98.890 - Other specified postprocedural states (ICD-10) Hx of breast reduction, elective ?Z98.890 - Other specified postprocedural states (ICD-10) H/O wisdom tooth extraction ?K08.409 - Partial loss of teeth, unspecified cause, unspecified class (ICD-10) Family History Mother Diabetes Other Lymphoma Social History (Updated 02/09/25 @ 07:00 by Zuleyma Montoya~BLOOD BANK SPECIALIST, BLOOD BANK SPECIALIST) Narrative: Does not have regular exercise regimen , radiography technician, 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-smoker Rarely consumes alcohol What is your current living situation?: I presently have a place to live Problems where you live: no known problems In the past 12 months, utilities in danger of being shut off: no In past 12 months, lack of transportation kept you from medical appts, meetings, work, or getting things needed for daily living: no In the past 12 mos, have been you worried that your food would run out before you had money to buy more?: never true In the past 12 mos, the food you bought just didn't last and you didn't have money to buy more?: never true Smoking Status: Never smoker How often do you have a drink containing alcohol: never How often do you have six or more drinks on one occasion: Never AUDIT-C Alcohol total score: 0 Non-prescribed substance use: denies use Caffeine: No How often does anyone, including family, friends and others, physically hurt you: never How often does anyone, including family, friends and others, insult or talk down to you: never How often does anyone, including family, friends and others, threaten you with harm: never How often does anyone, including family, friends and others, scream or curse at you: never Are you using contraception or practicing any form of control: No Exam Narrative: Exam Narrative: Constitutional: Well-developed, well-nourished, no acute distress. HEENT: Normocephalic, atraumatic. Neck: Normal range of motion. Nontender. Supple. Heart: Regular. No murmurs. Normal rate. Intact distal pulses. Lungs: Clear to auscultation. No chest discomfort. No wheezes, rhonchi, or rales. Abdomen: Normal bowel sounds. No rebound tenderness. Right flank pain is reproduced when percussing over that area. She reports pain radiating down into her right lower abdomen. Genitalia: Deferred. Back: No midline tenderness. Normal range of motion. Extremities: Normal range of motion. No injury. Skin: Intact. No rash. Warm. No erythema or pallor. Neurologic: No altered sensation. No weakness. Alert and oriented. Psychiatric: No suicidality. No anxiety or depression. No insomnia. Nursing notes and vitals signs are reviewed. Const: Vital Signs, click to edit/add: Vital Signs - 24 hr 02/23/25 07:42 Temperature 97.2 F L Pulse Rate [Pulse Oximeter] 97 Respiratory Rate 16 Blood Pressure [Ri ght Upper Arm] 125/84 Pulse Oximetry 97 Oxygen Delivery Me thod Room Air Course Vital Signs Vital signs: Initial Vital Signs Temperature 97.2 F L 02/23/25 07:42 Temperature Source Temporal Artery Scan 02/23/25 07:42 Pulse Rate 97 02/23/25 07:42 Respiratory Rate 16 02/23/25 07:42 Blood Pressure 125/84 02/23/25 07:42 Blood Pressure Mean 97 02/23/25 07:42 Blood Pressure Position Sitting 02/23/25 07:42 Pulse Oximetry 97 02/23/25 07:42 Oxygen Delivery Method Room Air 02/23/25 07:42 Vital Signs Temperature 97.2 F L 02/23/25 07:42 Pulse Rate 97 02/23/25 07:42 Respiratory Rate 16 02/23/25 07:42 Blood Pressure 125/84 02/23/25 07:42 Pulse Oximetry 97 02/23/25 07:42 Oxygen Delivery Method Room Air 02/23/25 07:42 Temperature 97.2 F L 02/23/25 07:42 Pulse Rate 97 02/23/25 07:42 Respiratory Rate 16 02/23/25 07:42 Blood Pressure 125/84 02/23/25 07:42 Pulse Oximetry 97 02/23/25 07:42 Oxygen Delivery Method Room Air 02/23/25 07:42 Medical Decision Making MDM Narrative Medical decision making narrative: This patient was recently treated for urinary tract infection and urinalysis today shows no sign of infection currently. She comes in complaining of some pain in her right flank and right abdomen. She does not have any history of kidney stone. A CT scan of the abdomen and pelvis is obtained without contrast and shows some suspicious undefined area and the right adnexa which would be better characterized by ultrasound. Rested this CT scan is otherwise reassuring. A ultrasound is obtained and does show a 2.9 cm right ovarian cyst or follicle. This is not showing any abnormal findings otherwise. She may be leaking some fluid from the cyst and causing her pain. She is okay to be discharged home. I did provide a prescription for Toradol. Lab Data Labs: Lab Results 02/23/25 Range/Units 08:20 Urine Color Yellow (Yellow) Urine Appearance Clear (Clear) Urine pH 7.0 (5.0-8.5) Ur Specific [place] 1.020 (1.000-1.030) Urine Protein Negative (Negative) Urine Glucose (UA) Negative (Negative) Urine Ketones Negative (Negative) Urine Blood Negative (Negative) Urine Nitrite Negative (Negative) Urine Bilirubin Negative (Negative) Urine Urobilinogen 0.2 (0.2-1.0) Ur Leukocyte Esterase Negative (Negative) Urine RBC 0-2 (0-2) Urine WBC 0-2 (0-5) Ur Squamous Epith Cells Few (None-Few) Urine Bacteria Few A (None) Imaging Data CT scan - abdomen: Radiologist's impression: Asymmetric prominent right adnexa. A follow-up pelvic ultrasound is recommended for further evaluation in this patient with right flank pain. Discharge Plan Discharge Clinical Impression: Abdominal pain, Ovarian cyst Patient Disposition: Home, Self-Care Additional Instructions: Take medication as needed and directed. Follow up with MD or return if worsening. Prescriptions: New ketorolac 10 mg tablet 10 mg PO TID 5 Days Qty: 15 0RF No Action multivitamin Tablet 1 tab PO QDAY famotidine 20 mg tablet 20 mg PO QDAY PRN omeprazole 20 mg capsule,delayed release(DR/EC) 20 mg PO QDAY Qty: 90 3RF phentermine-topiramate [Qsymia] 15-92 mg capsule, ER multiphase 24 hr 1 cap PO QDAY Qty: 30 5RF valacyclovir 1 gram tablet 2,000 mg PO Q12H PRN (Reason: cold sores) Qty: 14 3RF Rx Instructions: 2 tabs at onset of cold sore, repeat after 12 hrs x 1. ondansetron 4 mg tablet,disintegrating 4 mg PO Q8H PRN (Reason: nausea and vomiting) Qty: 20 2RF cephalexin 500 mg capsule 500 mg PO QID 7 Days Qty: 28 0RF Follow Up/Referrals: Elbert Cadena MD [Primary Care Provider, Family Practice] Stand Alone [facility]: [facility] Info Instructions
[2025-02-23 08:25] LABS: Appearance Urine Clear (Clear)
--- NOTE | 2025-02-23 09:39 | CRLHL7_ITS ---
For Patients: As a result of the Century Cures Act, medical imaging exams and procedure reports are released immediately into your electronic medical record. You may view this report before your referring provider. If you have questions, please contact your health care provider. INDICATION: Right-sided abdominal/pelvic. TECHNIQUE: Ultrasound pelvis transabdominal and transvaginal for better assessment or to better visualize the endometrium. Real-time sonographic images with spectral and color Doppler imaging of the ovaries were obtained. COMPARISON: CT abdomen and pelvis February 23, 2025 FINDINGS: Uterus: 8.5 x 3.5 x 3.6 cm. Normal echotexture of the myometrium. No masses. Endometrium: Transvaginal imaging was performed to better evaluate the endometrium. Endometrial thickness measures 8 mm. No sign of endometrial mass or fluid. Right ovary measures 3.5 x 3.7 x 2.3 cm. Left ovary measures 2.5 x 1.4 x 2.0 cm. Simple right-sided ovarian cyst measures 2.5 x 2.9 x 2.3 cm. Normal arterial and venous blood flow is demonstrated in both ovaries. Cul-de-sac: No significant free fluid. IMPRESSION: Simple right ovarian cyst measuring 2.9 cm, likely follicular cyst. Otherwise, normal ultrasound examination of pelvis. Dictated by Amanda Calvillo MD @ 02/23/2025 11:43:16 AM (Electronically Signed)
[2025-02-23 12:01] VITALS: BP 127/82; PULSE 90; RESP 20
== END 2025-02-23 12:02 | disposition home or self-care (01) ==
PROVIDERS: Emergency Provider Emergency Medicine Emergency Medical Services; PCP Family Medicine
DX: R10.9 Unspecified abdominal pain (principal); N83.201 Unspecified ovarian cyst, right side
CPT/HCPCS: 74176; 76830; 76856; 81001; 87086; 93976; 99284; 99285

== ENCOUNTER 2025-05-20 09:46 | Outpatient (CLI) | payer OTHER, SELFPAY | END 2025-05-20 09:47 | disposition home or self-care (01) | LOC: NFLDREF 09:47 | PROVIDERS: PCP Family Medicine; Visit Provider Obstetrics & Gynecology | DX: N89.8 Other specified noninflammatory disorders of vagina (principal) | CPT/HCPCS: 81513; 87481; 87661 ==

== ENCOUNTER 2025-07-06 14:25 | Outpatient (CLI) | payer OTHER, SELFPAY ==
--- NOTE | 2025-07-06 14:45 | MR_ITS ---
[facility] [address] [facility] [address] Phone:?[phone] Fax:?[phone] Referring Physician Information: SONIYA Martinez [address] [facility] [address] Phone:?[phone] Fax:?[phone] Patient:Max Murray D.O.B:?1990 Sex:?Female Phone:?[phone] [facility] MRN:?[id number] Exam Date:?07/06/2025 EXAM: MRI of the RIGHT ELBOW, without contrast CLINICAL INFORMATION: Female, 34 years old, with right elbow burning, pain, and numbness. INDICATION: Elbow pain PRIOR SURGERY: None reported. PLAIN FILMS: None available. COMPARISONS: No prior MRIs available. TECHNICAL INFORMATION: Using a 1.5T MR scanner and a localizing surface coil: coronals: T1, T2, PD, STIR sagittals: PD, T2 axials: PD, T2 SEDATION: None CONTRAST: None FINDINGS: Elbow joint: Effusion: Physiologic. Ganglion cyst: None. Radiohumeral plica: No pathologic thickening or enlargement. Osteochondral surfaces: No osteochondral abnormality. Loose bodies: No demonstrable loose bodies. Bursae: No pathologic olecranon or bicipitoradial bursal thickening/bursitis. Bones: Humerus: No fracture, osteochondritis dissecans or marrow edema/pathology. Radius: No fracture or marrow edema. Ulna: No fracture or marrow edema. Myotendinous structures: Biceps: Intact, without tendinopathy or tear. Triceps: Intact posterior tendinous and anterior muscular insertions and lateral aponeurotic component, without tendinopathy, strain or tear. Brachialis: No strain/tear. Supinator: No strain/tear. Forearm extensors: No tear or tendinopathy. Forearm flexors: No tear or tendinopathy. Ligaments: Medial ulnar collateral: No sprain or disruption. Radial collateral proper: Normal. Lateral ulnar collateral: Normal. Annular: Normal. Nerves: Ulnar: Normal, without appreciable edema, thickening or mass. No anconeus epitrochlearis accessory muscle over the cubital tunnel. Median: Normal. Radial: Normal. IMPRESSION: 1. Intact common flexor tendon and common extensor tendon without tear. 2. Intact ligamentous structures without sprain or tear. 3. Intact distal biceps and triceps tendons. 4. Normal radiocapitellar and ulnohumeral joints. No expansile elbow joint effusion KME Electronically signed on 07/07/2025 10:24:00 AM by Nuris Moreno M.D.
--- NOTE | 2025-07-06 15:30 | MR_ITS ---
[facility] [address] [facility] [address] Phone:?[phone] Fax:?[phone] Referring Physician Information: SONIYA Martinez [address] [facility] [address] Phone:?[phone] Fax:?[phone] Patient:Max Murray D.O.B:?1990 Sex:?Female Phone:?[phone] [facility] MRN:?[id number] Exam Date:?07/06/2025 EXAM: MRI EXAMINATION OF THE RIGHT WRIST WITHOUT CONTRAST CLINICAL INFORMATION: Female, 34 years old, with right wrist and elbow pain, burning, and numbness. INDICATION: Wrist pain PRIOR SURGERY: None reported. PLAIN FILMS: None available. COMPARISONS: No prior MRIs available. TECHNICAL INFORMATION: Using a 1.5T MR scanner and a localizing surface coil: coronals: PD, T2, STIR sagittals: PD, T2FS axials: PD, T2FS SEDATION: None CONTRAST: None FINDINGS: Bones and joints: No stress/occult fracture, bone marrow edema, or carpal bone osteonecrosis. No discrete osteochondral lesion. Triangular fibrocartilage: The triangular fibrocartilage proper, distal dorsal and volar radioulnar ligaments, ulnar collateral ligament/meniscal homologue, ulnotriquetral, and ulnolunate ligaments are intact. Ligaments: No evidence for scapholunate or lunotriquetral interosseous ligament disruption. Interosseous distances between the scaphoid, lunate and triquetrum appear uniform and normal. Alignment:?Type I lunate. 2 mm ulnar negative variance. Tendons: The flexor tendons are normal in caliber and signal intensity throughout their course including within the carpal tunnel. The tendons within the 1st-6th extensor compartments are intact. No significant tendinopathy, and without tenosynovitis, tendon split or tendon disruption. Neurovascular structures: The median nerve appears normal in caliber and signal intensity throughout its course including within the carpal tunnel. The ulnar nerve is intact and normal in appearance. No evidence for intrinsic/extrinsic mass within Guyon's canal. Soft tissues: There is a ganglion appearing between the fourth and the fifth dorsal extensor compartment which measures approximately 0.9 x 0.9 x 1.1 cm at the level of the intercarpal space (axial series 4 image 13, and sagittal series 8 image 13). Mild dorsal wrist synovitis. IMPRESSION: 1. Ganglion extending between the fourth and fifth dorsal compartments at the level of the intercarpal space measuring approximately 0.9 x 0.9 x 1.1 cm. 2. Intact osseous structures without stress reaction/fracture. 3. Intact scapholunate and lunotriquetral ligament. Intact triangular fibrocartilage complex. 4. Intact flexor and extensor tendons without tendinopathy, tear, or tenosynovitis. 5. Mild dorsal wrist synovitis. KME Electronically signed on 07/07/2025 10:07:00 AM by Nuris Moreno M.D.
== END 2025-07-06 14:26 | disposition home or self-care (01) ==
LOC: MRI 14:25
PROVIDERS: PCP Family Medicine; Visit Provider Physician Assistant Surgical
DX: M25.531 Pain in right wrist (principal); M67.431 Ganglion, right wrist; M25.521 Pain in right elbow
CPT/HCPCS: 73221